=== PATIENT | female | born 2000 | race Caucasian/White ===

== ENCOUNTER 2022-06-20 22:53 | Emergency (ER) | payer SELFPAY ==
[2022-06-21 00:20] LABS: ALT (SGPT) 12 U/L (8-55); AST (SGOT) 22 U/L (5-30); Albumin 3.5 g/dL (3.5-5.0); Alkaline Phosphatase 60 U/L (40-100); Anion Gap 13 mmol/L (10-20); BUN (Urea Nitrogen) 9 mg/dL (8.4-21.0); Bilirubin, Total 0.3 mg/dL (0.2-1.2); Calc. Creatinine Clearance 0 mL/min (70-130); Carbon Dioxide 18 mmol/L (22-29); Chloride 107 mmol/L (98-107); Estimated GFR 114; Globulin 3.8 g/dL (2.4-3.5); Glucose 101 mg/dL (70-105); Lipase 30 U/L (8-78); Potassium 4.1 mmol/L (3.5-5.1); Protein, Total 7.3 g/dL (6.0-8.3); Sodium 134 mmol/L (136-145)
[2022-06-21 01:17] LABS: Pregnancy Test - Urine (BHCG) Negative (Negative)
[2022-06-21 01:18] LABS: Pregu Control Background? CLEAR/WHITE (CLR/WHITE); Pregu Control Bar Appear? YES (CONTROL BAR); Specific Gravity 1.022 (1.002-1.036)
[2022-06-21 01:37] LABS: #Basophils 0.1 thou/uL (0.0-0.2); #Eosinphils 0.4 thou/uL (0.0-0.7); #Lymphocytes 3.6 thou/uL (1.20-3.40); #Monocytes 0.7 thou/uL (0.11-0.59); #Neutrophils 6.8 thou/uL (1.40-6.50); %Basophils 0.5 % (0.0-1.0); %Eosinophils 3.9 % (0.0-10.0); %Lymphocytes 31.4 % (28.0-48.0); %Monocytes 5.7 % (0.0-4.0); %Neutrophils 58.5 % (31.0-61.0); Hemoglobin 12.8 g/dL (12.0-16.0); Mean Corpuscular HGB CONC 33.3 g/dL (32.0-36.0); Mean Corpuscular Hemoglobin 30.2 pg (25.0-35.0); Mean Corpuscular Volume 90.7 fl (78.0-98.0); Mean Platelet Volume 9.2 fL (7.4-10.4); Platelet Count 269 10x3/uL (130-400); RBC Distribution Width 12.1 % (11.5-14.5); Red Blood Cell (RBC) Count 4.26 mill/uL (4.00-5.20); White Blood Cell (WBC) Count 11.5 10x3/uL (4.8-10.8)
== END 2022-06-21 02:01 | disposition home or self-care (01) ==
LOC: ERS 22:53
DX: K80.20 Calculus of gallbladder without cholecystitis without obstruction (principal); D72.829 Elevated white blood cell count, unspecified; F17.210 Nicotine dependence, cigarettes, uncomplicated
CPT/HCPCS: 36415; 76705; 80053; 81025; 83690; 85025